=== PATIENT | female | born 1960 | race American Indian/Alaskan Native ===

== ENCOUNTER 2021-11-14 07:02 | Day surgery (SDC) | payer OTHER ==
[2021-11-12 09:39] LABS: Basophils % (Auto) 0.2 % (0.0-1.8); Eosinophils # (Auto) 0.1 K/mm3 (0.0-0.4); Hematocrit 43.1 % (30.3-42.9); Hemoglobin 13.8 gm/dl (10.1-14.3); Lymphocytes # (Auto) 1.4 K/mm3 (1.2-5.4); Mean Corpuscular HGB Conc 32 % (30-34); Mean Corpuscular Volume 89 fl (79-97); Monocytes # (Auto) 0.5 K/mm3 (0.0-0.8); Monocytes % (Auto) 8.2 % (0.0-7.3); Platelet Count 179 K/mm3 (140-440); Red Blood Count 4.82 M/mm3 (3.65-5.03); Red Cell Distribution Width 14.8 % (13.2-15.2)
[2021-11-12 09:46] LABS: Blood Urea Nitrogen 10 mg/dL (7-17); Calcium 9.3 mg/dL (8.4-10.2); Hemolysis Index 2
--- NOTE | 2021-11-12 09:47 | Anesthesia Consultation ---
Anesthesia Consult and Med Hx Date of service: 11/14/21 - Airway Anesthetic Teeth Evaluation: Good (overbite) ROM Head & Neck: Adequate Mental/Hyoid Distance: Adequate Mallampati Class: Class II Intubation Access Assessment: Probably Good - Pulmonary Exam CTA: Yes - Cardiac Exam Cardiac Exam: RRR - Pre-Operative Health Status ASA Pre-Surgery Classification: ASA3 Proposed Anesthetic Plan: General Nerve Block: TAP - Pulmonary Hx Smoking: No Hx Respiratory Symptoms: No Hx Sleep Apnea: No (HIGH RISK ON DIMA PRESCREEN) - Cardiovascular System Hx Hypertension: No Hx Heart Attack/AMI: No - Central Nervous System CVA: No Hx Psychiatric Problems: Yes (anxiety) - Endocrine Hx Renal Disease: No Hx Liver Disease: No Hx Non-Insulin Dependent Diabetes: No (pre-DM) Hx Thyroid Disease: No - Hematic Hx Anemia: No (remote hx transfusion) - Other Systems Hx Obesity: Yes (BMI 51) - Additional Comments Anesthesia Medical History Comments: No hx anesthetic complications.
[2021-11-12 10:04] LABS: BUN/Creatinine Ratio 17
[~2021-11-14 07:02] MED LIST: ACETAMINOPHEN 500 MG TAB PO SCH; CELECOXIB 200 MG CAP PO NR; GABAPENTIN 300 MG CAP PO NR; LACTATED RINGERS 1,000 ML IV SCH; MIDAZOLAM 2 MG/2 ML INJ IV NR; fentaNYL 100 MCG/2 ML INJ IV PRN
[2021-11-14] MEDS ORDERED: GENTAMICIN 80 MG in SODIUM CHLORIDE 0.9% 100 ML IV ONE (07:43)
--- NOTE | 2021-11-14 07:43 | Short Stay Summary ---
Short Stay Documentation Date of service: 11/14/21 Narrative H&P: 61y/o with a history of postmenopausal bleeding. Endometrial biopsy indicated findings of complex hyperplasia. The patient has elected to undergo definitive surgical management. - History Principal diagnosis: Complex endometrial hyperplasia Past Medical History: anemia Past Surgical History: Other (myomectomy) Social history: single - Allergies and Medications Current Medications: Allergies codeine Adverse Reaction (Intermediate, Verified 11/07/21 12:54) Diarrhea THEN CONSTIPATION Penicillins Adverse Reaction (Intermediate, Verified 11/07/21 12:54) Diarrhea then constipation Home Medications Medication Instructions Recorded Confirmed Last Taken Type Diabetain-Herbal Medication 2 cap PO DAILY 11/07/21 Unknown History Active Medications Acetaminophen (Acetaminophen 500 Mg Tab) 1,000 mg PO PREOP RADHA Stop: 11/14/21 20:00 Celecoxib (Celecoxib 200 Mg Cap) 200 mg PO PREOP NR Stop: 11/14/21 20:00 Fentanyl (Fentanyl 100 Mcg/2 Ml Inj) 100 mcg IV ONCE PRN PRN Reason: sedation for nerve block Stop: 11/14/21 20:00 Gabapentin (Gabapentin 300 Mg Cap) 300 mg PO PREOP NR Stop: 11/14/21 20:00 Lactated Ringer's (Lactated Ringers) 1,000 mls @ 100 mls/hr IV DIRECT RADHA Stop: 11/14/21 23:59 Methocarbamol (Methocarbamol 500 Mg Tab) 1,000 mg PO PREOP RADHA Midazolam HCl (Midazolam 2 Mg/2 Ml Inj) 2 mg IV PREOP NR Stop: 11/14/21 20:00 - Physical exam General appearance: no acute distress Integumentary: no rash HEENT: Atraumatic Lungs: Clear to auscultation Breasts: deferred Heart: Regular rate Gastrointestinal: normal Female Genitourinary: deferred Rectal Exam: deferred - Brief post op/procedure progress note Date of procedure: 11/14/21 Pre-op diagnosis: Complex hyperplasia and symptomatic uterine fibroid Post-op diagnosis: same Procedure: Robotic hysterectomy and bilateral salpingo-oophorectomy Anesthesia: BRIDGET Surgeon: RODRIGO SHARP Estimated blood loss: minimal Pathology: list (Uterus, cervix, bilateral tubes and ovaries) Specimen disposition: to lab Condition: stable - Hospital course Hospital course: The patient was admitted the day of surgery underwent a robotic hysterectomy and bilateral salpingo-oophorectomy please see operative note for details of surgery. Her postoperative course was uneventful. - Disposition Condition at discharge: Good Disposition: 01 HOME / SELF CARE / HOMELESS Short Stay Discharge Plan Activity: other (Pelvic rest for 6 weeks) Diet: regular Additional Instructions: Schedule follow-up with Dr. Sharp in 4 weeks
[2021-11-14] MEDS ORDERED: LIDOCAINE (1%) 10 MG/1 ML VIAL 20 ML MDV ONE (08:24)
[2021-11-14] MEDS ORDERED: BUPIVACAINE-EPINEPHRINE/PF 0.25%-1:200,000 (30 ML) VIAL INFILTRATI ONE (08:24)
[2021-11-14] MEDS ORDERED: dexAMETHasone 4 MG/ML VIAL ONE (08:24)
[2021-11-14] MEDS ORDERED: cloNIDine/PF 1,000 MCG/10 ML VIAL EP ONE (08:24)
[2021-11-14] MEDS ORDERED: HYDROmorphone 0.5 MG/0.5 ML INJ IV PRN (08:30)
[2021-11-14] MEDS ORDERED: oxyCODONE /ACETAMINOPHEN 5-325MG TAB PO PRN (08:31)
--- NOTE | 2021-11-14 08:31 | Anesthesia Day of Surgery ---
Anesthesia Day of Surgery - Day of Surgery Patient Examined: Yes Patient H&P Reviewed: Yes Patient is NPO: Yes
[2021-11-14] MEDS ORDERED: ONDANSETRON 4 MG/2 ML INJ IV PRN (09:00)
[2021-11-14] MEDS ORDERED: GENTAMICIN/NS 120MG/100ML 120 MG/100 ML BAG IV SCH (09:00)
[2021-11-14] MEDS ORDERED: LIDOCAINE MPF (2%) 20 MG/1 ML VIAL 5 ML ONE (09:28)
[2021-11-14] MEDS ORDERED: HYDROmorphone 1 MG/1 ML INJ ONE (09:28)
[2021-11-14] MEDS ORDERED: ONDANSETRON 4 MG/2 ML INJ ONE (09:28)
[2021-11-14] MEDS ORDERED: ROCURONIUM 50 MG/5 ML INJ IV ONE (09:28)
[2021-11-14] MEDS ORDERED: propofoL 200 MG/20 ML VIAL IV ONE (09:28)
[2021-11-14] MEDS ORDERED: NEOMY 40 MG/POLYMYXIN B 200,000 UNITS/ML (GU) AMPULE IR ONE ×2 (09:32→12:25)
[2021-11-14] MEDS ORDERED: dexAMETHasone 20 MG/5 ML VIAL ONE (11:27)
[2021-11-14] MEDS ORDERED: PHENYLEPHRINE/NS 1,000 MCG/10 ML SYRINGE (OR USE) IV ONE (11:28)
[2021-11-14] MEDS ORDERED: LACTATED RINGERS 1,000 ML ONE (12:10)
[2021-11-14] MEDS ORDERED: GLYCOPYRROLATE 0.4 MG/2 ML INJ ONE (12:13)
[2021-11-14] MEDS ORDERED: NEOSTIGMINE 10MG/10 ML INJ MDV ONE (12:13)
--- NOTE | 2021-11-14 12:22 | Operative Report ---
Operative Report Operative Report: Date of surgery: November 14, 2021 Preoperative diagnoses: Complex hyperplasia; symptomatic uterine fibroids; pos tmenopausal bleeding Postoperative diagnoses: Same as above Procedure: Robotic hysterectomy and bilateral salpingo-oophorectomy; lysis of adhesions Surgeon: Tawana Burnett M.D. Electrical Transmission Engineer:MD Nellie Anesthesia: Gen. endotracheal anesthesia Estimated blood loss: 25 mL Pathology: Uterus, cervix, bilateral tubes and ovaries Indication: 61-year-old -0-4-1 with a history of complex hyperplasia and postmenopausal bleeding. Patient elected to undergo definitive surgical management. Procedure: The patient was taken to the operating room and given general endotracheal anesthesia without complication. She is prepped and draped in a normal sterile fashion. A bivalve speculum was placed in the patient's vagina and a single- tooth tenaculum placed on the anterior lip of the cervix. The uterus was sounded with the uterine sound. A stay suture was placed at 12 o'clock on the ectocervix. A [employer] uterine manipulator was placed in the bivalve speculum was then removed. Attention was then turned to the patient's abdomen where a 12 millimeter supra umbilical skin incision was then made. A Veress needle was placed and peritoneal entry was verified water-filled syringe. Insufflation of the peritoneal cavity was performed with CO2 gas. The 12 mm trocar was then placed under direct visualization. An additional 8 mm trocar was placed on the patient's left and right lateral side just opposite of the supraumbilical trocar. An additional 5 mm right lateral trocar was then placed as the accessory port. The Song Troncoso device was used to close the fascia of the 12 mm incision. The patient was then placed in steep Trendelenburg. The da Micky robot was then engaged. A fenestrated forcep was placed in arm 2 and a vessel sealer was placed in arm 1. The surgeon then transferred to the surgical console. General survey of the abdomen and pelvis revealed mildly enlarged fibroid uterus with normal tubes and ovaries. It was some filmy adhesions posterior aspect of the uterus which were lysed with the vessel sealer. The infundibulopelvic ligament was then isolated on the right. The vessel sealer was used to coagulate the ligament which was then transected. The tube and ovary were transected from the supply. The round ligament was then coagulated and transected also. The vesicouterine peritoneum was then entered from the patient's right side. The uterine vessels were then coagulated with the vessel sealer. The vessels were then transected . Attention was then turned to the patient's left side where the infundibulopelvic ligament and mesosalpinx were again isolated coagulated and transected. The vesical peritoneum was then entered from the left and joined in the midline. Peritoneum was reflected off of the lower uterine segment. Uterine vessels were then coagulated and then transected. The blood supply to the uterus was adequately contained, a posterior colpotomy was made. The V care ring was visualized. Posterior colpotomy was created with the monopolar scissors. The incision was continued circumferentially until anterior colpotomy was made. The cervix and uterus were amputated from the vaginal cuff. The uterus was then removed along with the tubes and ovaries bilaterally through the vagina and a warm laparotomy sponge was placed and maintain the pneumoperitoneum. The vaginal cuff was then closed in a running fashion with V lock suture. Irrigation of the pelvis was performed. Surgicel powder was applied to the incision. The skin was then reapproximated with 4-0 Monocryl. The tissue was sent to pathology which in cluded the cervix, uterus, tubes and ovaries. The patient was then successfully extubated. She was then taken to the recovery room in stable condition. All sponge laps and needle counts were correct x2.
[2021-11-14] MEDS ORDERED: SODIUM CHLORIDE 0.9% IRR 1,500 ML BOTTLE IR ONE (12:25)
[2021-11-14] MEDS ORDERED: SODIUM CHLORIDE 0.9% IRRIG SOLN 2000 ML IR ONE (12:25)
--- NOTE | 2021-11-14 18:31 | Post Anesthesia Evaluation ---
- Post Anesthesia Evaluation Patient Participated: Yes Airway Patent: Yes Stable Respiratory Function: Yes Nausea/Vomiting: No Temp > 96.8F: Yes Pain Manageable: Yes Adequeate Hydration: Yes Anesthesia Complications: No
[2021-11-14 19:53] VITALS: BP 142/74
== END 2021-11-14 15:25 | disposition home or self-care (01) ==
LOC: OR 07:02
PROVIDERS: ATTEND Obstetrics & Gynecology
DX: N95.0 Postmenopausal bleeding (principal); D25.9 Leiomyoma of uterus, unspecified; N84.0 Polyp of corpus uteri; N83.319 Acquired atrophy of ovary, unspecified side; J45.909 Unspecified asthma, uncomplicated; K21.9 Gastro-esophageal reflux disease without esophagitis; F41.9 Anxiety disorder, unspecified; E66.9 Obesity, unspecified; Z88.5 Allergy status to narcotic agent; Z20.822 Contact with and (suspected) exposure to COVID-19; Z79.899 Other long term (current) drug therapy; Z88.0 Allergy status to penicillin; Z98.890 Other specified postprocedural states; Z68.43 Body mass index [BMI] 50.0-59.9, adult; Z86.2 Personal history of diseases of the blood and blood-forming organs and certain disorders involving the immune mechanism
CPT/HCPCS: 36415; 58572; 64488; 80048; 85025; 86850; 86900; 86901; 88307; 88311; J0735; J1100; J1170; J1580; J1815; J2250; J2370; J2405; J2704; J2710; J3010; J3490; J7120; J7502; S2900; U0003; 64450